=== PATIENT | male | born 2000 | race Two or more races ===

== ENCOUNTER 2018-11-03 18:49 | Emergency (ER) | payer MEDICAID ==
[~2018-11-03] VITALS: Ht 170.2 cm; Wt 77.1 kg
[2018-11-03] MEDS ORDERED: NKM (19:01)
[2018-11-03 19:05] VITALS: BP 122/64
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
[2018-11-03 20:22] VITALS: BP 133/72
[2018-11-03] MEDS ORDERED: ROBAXIN-750750 MG PO (20:22)
[2018-11-03] MEDS ORDERED: IBUPROFEN600 MG ORAL (20:22)
[2018-11-03 20:47] VITALS: BP 133/72
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
== END 2018-11-03 20:49 | disposition home or self-care (01) ==
LOC: EMR 19:10
DX: S90.31XA Contusion of right foot, initial encounter (principal); S40.012A Contusion of left shoulder, initial encounter; S16.1XXA Strain of muscle, fascia and tendon at neck level, initial encounter; M62.838 Other muscle spasm; V43.51XA Car driver injured in collision with sport utility vehicle in traffic accident, initial encounter; Y92.410 Unspecified street and highway as the place of occurrence of the external cause
CPT/HCPCS: 99284

== ENCOUNTER 2018-11-06 23:55 | Emergency (ER) | payer MEDICAID ==
[~2018-11-06] VITALS: Ht 170.2 cm; Wt 77.1 kg
[~2018-11-06 23:55] MED LIST: IBUPROFEN600 MG ORAL; NKM; ROBAXIN-750750 MG PO
[2018-11-07] MEDS ORDERED: Mylanta II UD 30ml ORAL ONE (00:15)
[2018-11-07] MEDS ORDERED: Dicyclomine HCl 10mg/5ml oral soln ORAL ONE (00:15)
--- NOTE | 2018-11-07 00:15 | NUR ---
ED Nurse Note: Pt ambulated to Ed from home c/o 8/10 abdominal pain x6 days, pt reports recent constipation as well. Pt is A&O x4. VSS
[2018-11-07 00:22] LABS: APPEARANCE,URINE CLEAR; BILIRUBIN, URINE NEGATIVE (NEGATIVE); COLOR,URINE PALE YELLOW; GLUCOSE, URINE (UA) NEGATIVE (NEGATIVE); KETONES,URINE NEGATIVE (NEGATIVE); LEUKOCYTE ESTERASE ,URINE NEGATIVE (NEGATIVE); NITRITE,URINE NEGATIVE (NEGATIVE); PH,URINE 7 (4.5-8.0); PROTEIN,URINE NEGATIVE (NEGATIVE); UROBILINOGEN,URINE NORMAL MG/DL (0.0-1.0)
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
[2018-11-07 00:33] LABS: BASOPHILS % (AUTO) 0.5 % (0.0-2.0); EOSINOPHILS % (AUTO) 1.3 % (0.0-3.0); HEMATOCRIT 46.6 % (42.0-52.0); HEMOGLOBIN 16.6 G/DL (14.2-18.0); LYMPHOCYTES % (AUTO) 25.3 % (20.0-45.0); MEAN CORPUSCULAR VOLUME 87 FL (80-99); MONOCYTES % (AUTO) 8.3 % (1.0-10.0); NEUTROPHILS % (AUTO) 64.6 % (45.0-75.0); PLATELET COUNT 183 K/UL (150-450); RED BLOOD COUNT 5.35 M/UL (4.70-6.10); RED CELL DISTRIBUTION WIDTH 10.9 % (11.6-14.8); WHITE BLOOD COUNT 10.8 K/UL (4.8-10.8)
[2018-11-07 00:37] LABS: ANION GAP 7 mmol/L (5-15); BLOOD UREA NITROGEN 11 mg/dL (7-18); CALCIUM 9.3 MG/DL (8.5-10.1); CARBON DIOXIDE 32 MMOL/L (21-32); CHLORIDE 105 MMOL/L (98-107); POTASSIUM 3.9 MMOL/L (3.5-5.1); SODIUM 144 MMOL/L (136-145)
[2018-11-07 00:41] LABS: ALANINE AMINOTRANSFERASE 33 U/L (12-78); ALBUMIN 3.9 G/DL (3.4-5.0); ALBUMIN/GLOBULIN RATIO 1.1 (1.0-2.7); ALKALINE PHOSPHATASE 103 U/L (46-116); ASPARTATE AMINO TRANSFERASE 19 U/L (15-37); BILIRUBIN,TOTAL 0.5 MG/DL (0.2-1.0)
[2018-11-07 00:50] VITALS: BP 144/72
[2018-11-07] MEDS ORDERED: PEPCID AC20 M2 PO (01:29)
--- NOTE | 2018-11-07 01:39 | NUR ---
ER DISCHARGE NOTE: Patient is cleared to be discharged per ERMD, pt is aox4, on room air, with stable vital signs. pt was given dc and prescription instructions, pt was able to verbalize understanding, pt id band and iv site removed without complications. pt is able to ambulate with steady gait. pt took all belongings.
== END 2018-11-07 01:40 | disposition home or self-care (01) ==
LOC: EMR 11-07 00:24
DX: R10.12 Left upper quadrant pain (principal); R11.10 Vomiting, unspecified
CPT/HCPCS: 36415; 80053; 80307; 81003; 83690; 85025; 99282